=== PATIENT | male | born 1940 | race Hispanic/Latino ===

== ENCOUNTER 2020-12-27 07:44 | Observation (INO) | payer MEDICARE, OTHER ==
[~2020-12-27] VITALS: Ht 162.6 cm; Wt 85.3 kg
[~2020-12-27 07:44] MED LIST: AMLODIPINE BESYL5 MG PO; ASPIRIN81 M2 PO; GLUCOSAMINE1000 MG PO; HYDROCHLOROTHIA25 MG PO; Z.0.ATENOLOL50 MG PO; Z.0.LISINOPRIL10 MG PO; Z.0.NORCO 7.5-3251 E PO; Z.0.SIMVASTATIN20 MG PO; Z.0.VITAMIN C500 M1 PO; Z.1.VITAMIN E400 UNI PO; [UNRECOGNIZED DRUG - OTHER] PO
[2020-12-27] MEDS ORDERED: ROPIVACAINE 246.25 MG, EPINEPHRINE HCL 1:1000 1ML 0.5 MG, CLONIDINE HCL 0.08 MG, KETORO... INJ ONE ×5 (08:00)
[2020-12-27] MEDS ORDERED: GABAPENTIN 300 MG CAP ONE (08:10)
[2020-12-27] MEDS ORDERED: DEXAMETHASONE SOD PHOS 10 MG/1 ML VIAL ONE (08:10)
[2020-12-27] MEDS ORDERED: CELECOXIB 200 MG CAP ONE (08:10)
[2020-12-27] MEDS ORDERED: SODIUM CHLORIDE 0.9% 50ML 100 ML ONE (08:11)
[2020-12-27] MEDS ORDERED: Vancomycin IV 1,000 MG ONE (08:27)
[2020-12-27] MEDS ORDERED: SODIUM CHLORIDE 0.9% 500ML 500 ML ONE (08:27)
[2020-12-27] MEDS ORDERED: TRANEXAMIC ACID 1,000 MG/10 ML ML ONE (08:27)
[2020-12-27] MEDS ORDERED: KETOROLAC TROMETHAMINE 30 MG/ML VIAL IV PRN (10:15)
[2020-12-27] MEDS ORDERED: HYDROCODONE/APAP 5MG-325MG TAB PO PRN (10:15)
[2020-12-27] MEDS ORDERED: ACETAMINOPHEN 650 MG SUPP PR PRN (10:15)
[2020-12-27] MEDS ORDERED: DIPHENHYDRAMINE HCL INJ 50 MG/ML VIAL IV PRN (10:15)
[2020-12-27] MEDS ORDERED: ONDANSETRON HCL INJ 2MG/ML 2ML 2 MG/ML VIAL IV PRN (10:15)
[2020-12-27] MEDS ORDERED: DOCUSATE SODIUM 100 MG CAP PO PRN (10:15)
[2020-12-27] MEDS ORDERED: FENTANYL CITRATE/PF 100MCG/2 ML INJ ONE (10:54)
[2020-12-27 12:20] VITALS: BP 134/91
[2020-12-27 12:28] VITALS: BP 134/91
[2020-12-27 12:33] VITALS: BP 134/91
[2020-12-27] MEDS ORDERED: VITAMIN C500 MG PO (12:33)
[2020-12-27] MEDS ORDERED: ROPIVACAINE 0.5% 5 MG/ML 30 ML SDV ONE (12:51)
[2020-12-27] MEDS ORDERED: SODIUM CHLORIDE 0.9% 1000ML 1,000 ML IV SCH (13:00)
[2020-12-27] MEDS ORDERED: Cefazolin 1 GM in SODIUM CHLORIDE 0.9% 50ML 50 ML IV SCH (14:00)
[2020-12-27] MEDS: HYDROCODONE/APAP 7.5MG-325MG 1 EA TAB PO PRN ×2 (14:06→18:05)
[2020-12-27 15:52] VITALS: BP 111/70
[2020-12-27] MEDS ORDERED: CELECOXIB 200 MG CAP PO SCH (17:00)
[2020-12-27] MEDS ORDERED: PNEUMOCOCCAL VACCINE POLYVALENT 23 MCG/0.5 ML VIAL IM SCH (18:00)
[2020-12-27] MEDS ORDERED: ASPIRIN 325 MG TAB PO SCH (21:00)
[2020-12-27] MEDS ORDERED: ZOLPIDEM TARTRATE 5 MG TAB PO PRN (21:00)
[2020-12-28] MEDS ORDERED: ACETAMINOPHEN 1000 MG/100 ML IV PRN (10:15)
== END 2020-12-27 18:30 | disposition home or self-care (01) ==
LOC: OR 07:44 → PACU V 10:15 → MED/SURG 12:06
PROVIDERS: ADMIT Specialist; ATTEND Specialist
DX: M17.12 Unilateral primary osteoarthritis, left knee (principal); I10 Essential (primary) hypertension; I25.10 Atherosclerotic heart disease of native coronary artery without angina pectoris; Z95.5 Presence of coronary angioplasty implant and graft; E78.5 Hyperlipidemia, unspecified; Z01.812 Encounter for preprocedural laboratory examination; Z20.822 Contact with and (suspected) exposure to COVID-19; Z23 Encounter for immunization
CPT/HCPCS: 27447; 71046; 73560; 86850; 86900; 86920; 90732; 97110; 97116 ×2; 97161; 97530; C1713 ×2; C1776 ×3; G0009; G0378; J0171; J0690; J1100; J1885; J2795; J3010; J3370; J7030; J7040; U0002

== ENCOUNTER 2021-12-18 06:43 | Observation (INO) | payer MEDICARE ==
[2021-12-15 11:40] LABS: BASOPHILS % 0.3 % (0.0-1.0); EOSINOPHILS # (AUTO) 0.1 (0.0-0.4); EOSINOPHILS % 1.4 % (0.0-6.0); HEMOGLOBIN 15.3 g/dL (14.0-18.0); LYMPHOCYTES # (AUTO) 1.7 (1.0-3.2); LYMPHOCYTES % 29.8 % (18.0-39.1); MEAN CORPUSCULAR HEMOGLOBIN 31.2 pg (28-32); MEAN CORPUSCULAR HGB CONC 33.3 g/dL (31-35); MEAN CORPUSCULAR VOLUME 93.7 fL (81-99); MONOCYTES # (AUTO) 0.6 (0.2-0.8); MONOCYTES % 10.7 % (4.4-11.3); NEUTROPHILS # (AUTO) 3.3 (2.1-6.9); NEUTROPHILS % 57.3 % (38.7-80.0); PLATELET COUNT 200 x10e3/uL (140-360); RED BLOOD COUNT 4.91 x10e6/uL (4.3-5.7); RED CELL DISTRIBUTION WIDTH 12.4 % (11.7-14.4)
[~2021-12-18] VITALS: Ht 160 cm; Wt 81.6 kg
[~2021-12-18 06:43] MED LIST changes: +CELECOXIB 200 MG CAP ONE; +DEXAMETHASONE SOD PHOS 10 MG/1 ML VIAL ONE; +GABAPENTIN 300 MG CAP ONE; +VITAMIN C500 MG PO; +VITAMIN E400 UNI1 PO
[2021-12-18] MEDS ORDERED: TRANEXAMIC ACID 20 ML ONE (06:51)
[2021-12-18] MEDS ORDERED: SODIUM CHLORIDE 0.9% 250ML 250 ML ONE (06:51)
[2021-12-18] MEDS ORDERED: Vancomycin IV 1,000 MG ONE (06:51)
[2021-12-18 07:04] LABS: ANION GAP 13.4 mmol/L (8-16); CALCIUM 10.2 mg/dL (8.4-10.2); CREATININE, SERUM 0.87 mg/dL (0.72-1.25); POTASSIUM 3.4 mmol/L (3.5-5.1)
[2021-12-18] MEDS ORDERED: ROPIVACAINE 246.25 MG, EPINEPHRINE HCL 1:1000 1ML 0.5 MG, CLONIDINE HCL 0.08 MG, KETORO... INJ ONE ×5 (08:00)
[2021-12-18] MEDS ORDERED: ZOLPIDEM TARTRATE 5 MG TAB PO PRN (09:45)
[2021-12-18] MEDS ORDERED: DOCUSATE SODIUM 100 MG CAP PO PRN (09:45)
[2021-12-18] MEDS ORDERED: HYDROCODONE/APAP 7.5MG-325MG 1 EA TAB PO PRN (09:45)
[2021-12-18] MEDS ORDERED: ONDANSETRON HCL INJ 2MG/ML 2ML 2 MG/ML VIAL IV PRN (09:45)
[2021-12-18] MEDS ORDERED: SODIUM CHLORIDE 0.9% 1000ML 1,000 ML IV SCH (09:45)
[2021-12-18] MEDS ORDERED: HYDROCODONE/APAP 5MG-325MG TAB PO PRN (09:45)
[2021-12-18] MEDS ORDERED: FENTANYL CITRATE/PF 100MCG/2 ML INJ ONE ×2 (10:24→12:28)
[2021-12-18] MEDS ORDERED: LIDOCAINE HCL 2% LOCAL INJ 5 ML SDV VIAL INJ ONE (12:14)
[2021-12-18] MEDS ORDERED: SEVOFLURANE INHAL SOLN 250 ML PEN BTL ONE (12:14)
[2021-12-18] MEDS ORDERED: POVIDONE IODINE 0.05% 0.05 % ML PO ONE (12:14)
[2021-12-18] MEDS ORDERED: ACETAMINOPHEN 1000 MG/100 ML IV ONE (12:14)
[2021-12-18] MEDS ORDERED: PROPOFOL IV EMULSION 10 MG/ML 20 ML VIAL ONE (12:14)
[2021-12-18] MEDS ORDERED: ONDANSETRON HCL INJ 2MG/ML 2ML 2 MG/ML VIAL ONE (12:14)
[2021-12-18] MEDS ORDERED: ROPIVACAINE 0.5% 5 MG/ML 30 ML SDV ONE (12:24)
[2021-12-18] MEDS ORDERED: MIDAZOLAM HCL 2 MG/2 ML VIAL ONE (12:28)
[2021-12-18] MEDS ORDERED: HYDROCODONE/APAP 7.5MG-325MG 1 EA TAB ONE (13:53)
[2021-12-18 15:15] VITALS: BP 110/66
[2021-12-18] MEDS ORDERED: CELECOXIB 100 MG CAP PO SCH (17:00)
[2021-12-18] MEDS ORDERED: ASPIRIN 325 MG TAB PO SCH (17:00)
[2021-12-18] MEDS ORDERED: ACETAMINOPHEN 1000 MG/100 ML IV PRN (17:00)
[2021-12-18] MEDS ORDERED: ASPIRIN81 MG PO (17:17)
== END 2021-12-18 19:00 | disposition home or self-care (01) ==
LOC: OR 06:43 → PACU V 10:03 → MED/SURG 15:06
PROVIDERS: ADMIT Specialist; ATTEND Specialist
DX: M17.11 Unilateral primary osteoarthritis, right knee (principal); I10 Essential (primary) hypertension; E78.5 Hyperlipidemia, unspecified; I25.10 Atherosclerotic heart disease of native coronary artery without angina pectoris; K21.9 Gastro-esophageal reflux disease without esophagitis; Z95.5 Presence of coronary angioplasty implant and graft; Z83.3 Family history of diabetes mellitus; Z82.49 Family history of ischemic heart disease and other diseases of the circulatory system; Z96.652 Presence of left artificial knee joint
CPT/HCPCS: 27447; 36415 ×2; 73560; 80048; 85025; 86850; 86900; 86920; 94799; 97110; 97116 ×2; 97161; 97530; C1713 ×2; C1776 ×3; G0378; J0131; J0171; J0690; J1100; J1885; J2001; J2250; J2405; J2704; J2795; J3010; J3370; J7050

== ENCOUNTER → 2022-08-03 | Outpatient (CLI) | payer MEDICARE ==
[~2022-08-03] MED LIST changes: +ASPIRIN81 MG PO; -CELECOXIB 200 MG CAP ONE; -DEXAMETHASONE SOD PHOS 10 MG/1 ML VIAL ONE; -GABAPENTIN 300 MG CAP ONE
== END ==
LOC: US 07:50
PROVIDERS: ATTEND Family Medicine
DX: R10.10 Upper abdominal pain, unspecified (principal)
CPT/HCPCS: 76705

== ENCOUNTER → 2022-08-17 | Outpatient (CLI) | payer MEDICARE ==
[~2022-08-17] MED LIST changes: +IOPAMIDOL 370 MG/ML 100 ML INFUS..BTL INJ ONE
[2022-08-17 13:09] LABS: CREATININE, SERUM 0.85 mg/dL (0.72-1.25)
== END ==
LOC: CT 12:02
PROVIDERS: ATTEND Family Medicine
DX: D41.00 Neoplasm of uncertain behavior of unspecified kidney (principal)
CPT/HCPCS: 36415; 74160; 82565; 84520; Q9967

== ENCOUNTER → 2022-10-11 | Outpatient (CLI) | payer MEDICARE ==
[~2022-10-11] MED LIST changes: -IOPAMIDOL 370 MG/ML 100 ML INFUS..BTL INJ ONE
== END ==
LOC: NM 07:51
PROVIDERS: ATTEND Family Medicine
DX: E21.3 Hyperparathyroidism, unspecified (principal)
CPT/HCPCS: 78071; A9512